=== PATIENT | female | born 1990 | race African-American/Black ===

== ENCOUNTER 2016-10-08 10:29 | Emergency (ER) | payer OTHER ==
[~2016-10-08] VITALS: Ht 170.2 cm; Wt 97.5 kg
[~2016-10-08 10:29] MED LIST: BACTRIM DS TAB1 EACH PO
[2016-10-08] MEDS ORDERED: COMPAZINE10 MG PO (11:39)
[2016-10-08 11:50] VITALS: BP 124/87
== END 2016-10-08 12:08 | disposition home or self-care (01) ==
LOC: ER 10:29
DX: I10 Essential (primary) hypertension (principal)

== ENCOUNTER 2017-06-23 10:17 | Emergency (ER) | payer BC ==
[~2017-06-23] VITALS: Ht 170.2 cm; Wt 95.3 kg
--- NOTE | ~2017-06-23 | EKG ---
[place] [address] [facility] [employer] [place] [address] ELECTROCARDIOGRAM REPORT Name: INEZ ELLISON Room #: [facility]#: [id number] Admission: 06/23/17 Attend Phys: Discharge: 06/23/17 Date of : [birth year] Report #: [id number] THIS REPORT FOR: //name// [facility] ED Test Date: 2017-06-23 Test Time: 10:35:41 Pat Name: INEZ ELLISON Department: Room: Gender: F Evidence Technician: NOHELIA : 1990 Requested By: Marylin Sheffield Order Number: [id number] MD: Erich Tilley Measurements Intervals Taylor Rate: 61 P: 37 NH: 164 QRS: 37 QRSD: 93 T: 15 QT: 422 QTc: 425 Interpretive Statements Sinus rhythm No significant abnormality; early repolarization No previous ECG available for comparison Electronically Signed On 06-23-2017 19:26:58 CDT by Erich Tilley [email or web address] <ELECTRONICALLY SIGNED> By: Erich Tilley MD, [facility] 06/23/17 1926 1035 1035 Erich Tilley MD, FACC /EPI
[~2017-06-23 10:17] MED LIST changes: +COMPAZINE10 MG PO
[2017-06-23 11:02] LABS: ABSOLUTE NEUTROPHILS 6.7 thou/uL (1.4-8.2); BASOPHILS 0.7 % (0.0-2.0); HEMOGLOBIN 12.7 gm/dL (12.0-15.0); LYMPHOCYTES 22.5 % (24.0-44.0); MCH 27.8 pg (26.0-34.0); MCHC 32.6 g/dL (28.0-37.0); MCV 85.3 fL (80.0-100.0); PLATELET COUNT 265 thou/uL (150-400); POLYS 70.8 % (36.0-66.0); RBC 4.57 mil/uL (4.20-5.00); RDW 16.2 % (10.5-14.5); WBC 9.5 thou/uL (4.0-11.0)
[2017-06-23 11:17] LABS: CALCIUM 9.6 mg/dL (8.5-10.1); CREATININE 0.7 mg/dL (0.6-1.0); POTASSIUM 3.9 mmol/L (3.5-5.1)
[2017-06-23 12:17] LABS: URINE BILIRUBIN NEGATIVE (Negative); URINE BLOOD NEGATIVE (Negative); URINE CLARITY CLEAR; URINE COLOR YELLOW; URINE GLUCOSE-RANDOM* NEGATIVE (Negative); URINE KETONES NEGATIVE (Negative); URINE LEUKOCYTES TRACE (Negative); URINE NITRITE NEGATIVE (Negative); URINE PROTEIN (DIPSTICK) NEGATIVE (Negative); URINE UROBILINOGEN 0.2 E.U./dl (0.2-1.0)
[2017-06-23] MEDS ORDERED: PHENERGAN 25 MG25 M1 PO (12:38)
== END 2017-06-23 12:53 | disposition home or self-care (01) ==
LOC: ER 10:17
PROVIDERS: Emergency Medicine; Nurse Practitioner Family
DX: O21.0 Mild hyperemesis gravidarum (principal); O16.1 Unspecified maternal hypertension, first trimester; Z3A.08 8 weeks gestation of pregnancy; Z88.0 Allergy status to penicillin; Z88.1 Allergy status to other antibiotic agents